=== PATIENT | male | born 1950 | race African-American/Black ===

== ENCOUNTER 2018-01-23 12:53 | Observation (INO) | payer OTHER, MEDICARE ==
[~2018-01-23] VITALS: Ht 175.3 cm; Wt 62.0 kg
[~2018-01-23 12:53] MED LIST: ALEVE220 MG OR; ALLOPURINOL100 MG PO; ALLOPURINOL300 MG PO; CIPROFLOXACN500 MG PO; FLEXERIL OR; INDOCIN25 MG PO; LISINOPRIL10 MG PO; LORTAB 10 OR; LORTAB 10-325 M1 TAB PO; METFORMIN500 MG PO; METOPROL TAR25 M1 PO; METOPROL TAR25 MG PO; METOPROL TAR50 MG PO; PREPARATIO H RE; TRAMADOL HCL50 MG OR; ZANTAC25 MG OR; [UNRECOGNIZED DRUG - REMARK]
--- NOTE | 2018-01-23 13:03 | NUR ---
PT AMBULATED TO ROOM 14.
[2018-01-23] MEDS ORDERED: [UNRECOGNIZED DRUG - REMARK] (13:27)
[2018-01-23] MEDS ORDERED: LOSARTAN POT50 MG PO (13:27)
[2018-01-23 13:29] LABS: HEMATOCRIT 40.3 % (39.0-50.0); HEMOGLOBIN 13.3 g/dl (14.0-18.0); IMMATURE GRANULOCYTES 0.4 % (0.0-1.0); MEAN CELL VOLUME 93.3 fL CALC (80.0-100.0); MEAN CORPUSCULAR HGB 30.8 pG CALC (26.0-32.0); NEUT# 2.84 thou/uL (1.82-7.42); RED BLOOD COUNT 4.32 mill/uL (4.70-6.10); RED CELL DISTRI WIDTH 12.9 % (11.5-15.5)
--- NOTE | 2018-01-23 13:40 | NUR ---
PT HAS 1 VISITOR @BEDSIDE. 3 VISITORS IN [facility] WANT VISITOR @BEDSIDE TO LEAVE. 1 ADDITIONAL VISITOR ALLOWED IN. PT C/O HIGH BP & INCREASED URINE FREQUENCY x"WEEKS". STATES HE WENT TO PCP [facility] TODAY WHO TOLD HIM HE HAD TO BE ADMITTED. PT CAME TO THIS ER FOR ADMISSION. C/O FREQUENT URINATION, CHRONIC BACK PAIN. STATES HE HASNT TAKEN ANY MEDICATION TODAY. DENIES BOOKER. DENIES VISUAL CHANGES. PULSES STRONG, CAP REFILL <3SECS. EYES PERRLA @3. SKIN WARM & DRY. PT DENIES RECREATIONAL DRUG USE BUT MARIJUANA SMELT IN ROOM.
[2018-01-23 13:55] LABS: ALBUMIN 4.6 g/dL (3.2-5.0); ANION GAP 17 (6-22 (CALC)); BILIRUBIN, TOTAL 0.4 mg/dL (0.0-1.4); BUN 15 mg/dL (8-23); BUN/CREATININE RATIO 19 (12-20 (CALC)); CARBON DIOXIDE 24 mmol/l (22-30); CHLORIDE 101 mmol/l (95-108); CREATININE 0.8 mg/dL (0.7-1.3); GFR > 60 ML/MIN (>=60 (CALC)); GFR FOR AFR.AMER. > 60 ML/MIN (>=60 (CALC)); POTASSIUM 4.8 mmol/l (3.5-5.1); SGOT/AST 19 u/l (19-48); SGPT/ALT 43 u/l (11-66); SODIUM 138 mmol/l (137-146)
[2018-01-23 13:56] LABS: ALKALINE PHOSPHATASE 93 u/l (38-126)
[2018-01-23 14:06] LABS: MYOGLOBIN 53 ng/mL (0 - 121)
--- NOTE | 2018-01-23 14:46 | NUR ---
PT WAITING IN BED. ADMIT PENDING ORDERS & ROOM ASSIGNEMENT.
--- NOTE | 2018-01-23 15:21 | NUR ---
RECVING MAJOR HANSEN.
--- NOTE | 2018-01-23 15:25 | NUR ---
PT UNABLE TO PRODUCE ANY URINE SINCE ARRIVAL. PT RESTING IN BED, WATCHING TV. WAITING TO GIVE REPORT TO RECVING RN.
--- NOTE | 2018-01-23 15:36 | NUR ---
Admission Note Report Given to: LUCI Transported by: X Wheelchair Stretcher Transported with: X Nurse Transporter X Patent IV [id number] Community Service Representative
--- NOTE | 2018-01-23 15:47 | NUR ---
PT TRANSPORTED TO [facility] BY IN STABLE CONDITION. PT TRANSFERED TO BED UNASSISTED.
[2018-01-23 15:52] VITALS: BP 185/95
--- NOTE | 2018-01-23 17:55 | NUR ---
REPORT RECEIVED FROM OLE IN ED, PT ARRIVED ON UNIT @1550 VIA WC. ALERT AND ORIENTED X 4, ORIENTED TO ROOM AND CALL COELLO, DENIES PAIN, EDICATED ON DIABETES AND HYPERGLYCEMIA MEDS, SETTLED IN BE , WILL CONTINUE TO MONITOR.
[2018-01-23 20:00] VITALS: BP 142/96
--- NOTE | 2018-01-23 21:29 | NUR ---
PT.ASSESSED AND MEDICATED ORDERS PROVIDE AND FOR HEADACHE. LUNG SOUNDS ARE CLEAR, NO SIGNS OF EDEMA, PLS STRONG, ABD SOFT/NON-TENDER. IV FLUIDS ARE RUNNING ORDERS PROVIDE AND SITE APPEARS HEALTHY. PT.REPORTS FEELING BETTER. REPORTS FEELING "THIRSTY AND FREQUENT URINATION" REPORTS MODERATE SOFT STOOL TODAY. DENIES ANY OTHER NEEDS AT THIS TIME. CALL LIGHT W/IN REACH
--- NOTE | 2018-01-23 23:31 | NUR ---
PT.REPORTS ONLY URINATING ONCE THIS EVENING AND FLUSHING IT IN THE TOILET. INPUT OF 1300 AT THIS POINT. PT IS ATTEMPTING TO USE URINAL AT THIS TIME. WILL CONTINUE TO MONITOR AND REASSESS. PT.DENIES PAIN OR PRESSURE AT BLADDER AREA.
[2018-01-24 04:21] VITALS: BP 148/88
--- NOTE | 2018-01-24 04:21 | NUR ---
PT.IS SLEEPING WE ENTERED ROOM AND AWOKE TO OUR VOICES. NO S/S OF DISTRESS NOTED. V/S ASSESSED. PT.RETURNING TO SLEEP/LIGHTS OUT.
[2018-01-24 05:08] LABS: ALKALINE PHOSPHATASE 70 u/l (38-126); BILIRUBIN, TOTAL 0.3 mg/dL (0.0-1.4); BUN 12 mg/dL (8-23); BUN/CREATININE RATIO 16 (12-20 (CALC)); CARBON DIOXIDE 25 mmol/l (22-30); CHLORIDE 107 mmol/l (95-108); CREATININE 0.7 mg/dL (0.7-1.3); GFR > 60 ML/MIN (>=60 (CALC)); GFR FOR AFR.AMER. > 60 ML/MIN (>=60 (CALC)); SGOT/AST 17 u/l (19-48); SGPT/ALT 38 u/l (11-66); SODIUM 139 mmol/l (137-146)
[2018-01-24 05:10] LABS: ALBUMIN 3.4 g/dL (3.2-5.0); ANION GAP 11 (6-22 (CALC)); HEMATOCRIT 36.3 % (39.0-50.0); IMMATURE GRANULOCYTES 0.4 % (0.0-1.0); MEAN CELL VOLUME 94.3 fL CALC (80.0-100.0); MEAN CORPUSCULAR HGB 31.2 pG CALC (26.0-32.0); MEAN CORPUSCULAR HGB CONC 33.1 g/L CALC (32.0-36.0); NEUT# 1.89 thou/uL (1.82-7.42); POTASSIUM 3.8 mmol/l (3.5-5.1); RED BLOOD COUNT 3.85 mill/uL (4.70-6.10); RED CELL DISTRI WIDTH 13.2 % (11.5-15.5); TOTAL PROTEIN 6.3 g/dL (6.3-8.2)
--- NOTE | 2018-01-24 07:00 | NUR ---
SHIFT CHANGE REPORT FROM ALISON FULLER SLEEPING BUT AWAKENED TO VERBAL STIMULI, ORIENTED, NO C/O DISCOMFORT, IVF INFUSING, CALL COELLO IN REACH.
[2018-01-24 08:11] VITALS: BP 152/82
[2018-01-24 08:19] VITALS: BP 152/82
[2018-01-24 08:30] LABS: URINE BILIRUBIN - DIPSTICK NEGATIVE (NEGATIVE); URINE BLOOD DIPSTICK NEGATIVE (NEGATIVE); URINE COLOR YELLOW; URINE GLUCOSE - DIPSTICK 500 mg/dL (NEGATIVE); URINE KETONE TRACE mg/dL (NEGATIVE); URINE LEUK ESTERASE NEGATIVE (Negative); URINE NITRITE - DIPSTICK NEGATIVE (Negative); URINE PROTEIN - DIPSTICK 30 mg/dL (NEG-TRACE); URINE SPECIFIC GRAVITY >=1.030; URINE UROBILINOGEN - DIPSTICK 0.2 E.U./dL (0.2)
[2018-01-24 08:59] LABS: URINE CLARITY CLEAR
[2018-01-24 09:00] LABS: URINE RBC 0-2 RBC/hpf (0-5); URINE WBC 0-2 WBC/hpf (0-5)
[2018-01-24] MEDS ORDERED: GLUCOPHAGE500 MG PO (11:15)
[2018-01-24] MEDS ORDERED: METOPROL TAR25 MG PO (11:15)
[2018-01-24] MEDS ORDERED: LEVEMIR FL100 UNIT/M SC (11:17)
--- NOTE | 2018-01-24 14:40 | NUR ---
Discharge instructions given. Patient verbalizes understanding of same. Discharged in fair condition via Ambulatory to Home with family. All belongings sent with pt.
--- NOTE | 2018-01-24 14:53 | NUR ---
EDUCATION GIVEN ON INSULIN ADMINISTRATION CONTROL OF BLOOD GLUCOSE, WRITTEN AND VERBAL INFORMATION GIVEN.
== END 2018-01-24 14:40 | disposition home or self-care (01) | DRG 639 ==
LOC: ED 12:53 → ED-I 14:37 → ED 15:06 → MS2 15:07
PROVIDERS: Emergency Medicine; Nurse Practitioner; ADMIT Internal Medicine; ATTEND Internal Medicine
DX: E11.65 Type 2 diabetes mellitus with hyperglycemia (principal); I10 Essential (primary) hypertension; E66.9 Obesity, unspecified; Z79.84 Long term (current) use of oral hypoglycemic drugs
CPT/HCPCS: J1650

== ENCOUNTER 2018-11-13 19:03 | Emergency (ER) | payer MEDICARE ==
[~2018-11-13] VITALS: Ht 175.3 cm; Wt 107.0 kg
[~2018-11-13 19:03] MED LIST changes: +AMLODIPINE BESYL5 MG PO; +GLUCOPHAGE500 MG PO; +LEVEMIR FL100 UNIT/M SC; +LOSARTAN POT50 MG PO; +[UNRECOGNIZED DRUG - REMARK]
[2018-11-13 19:47] LABS: HEMATOCRIT 38.2 % (39.0-50.0); IMMATURE GRANULOCYTES 0.4 % (0.0-5.0); MEAN CORPUSCULAR HGB 30.2 pG CALC (26.0-32.0); MEAN CORPUSCULAR HGB CONC 31.4 g/L CALC (32.0-36.0); NEUT# 4.63 thou/uL (1.82-7.42); RED BLOOD COUNT 3.98 mill/uL (4.70-6.10); RED CELL DISTRI WIDTH 14.4 % (11.5-15.5)
[2018-11-13 20:19] LABS: ALBUMIN 4.5 g/dL (3.2-5.0); ALKALINE PHOSPHATASE 59 u/l (38-126); ANION GAP 16 (6-22 (CALC)); BILIRUBIN, TOTAL 0.4 mg/dL (0.0-1.4); BUN 16 mg/dL (8-23); BUN/CREATININE RATIO 17 (12-20 (CALC)); CARBON DIOXIDE 26 mmol/l (22-30); CHLORIDE 104 mmol/l (95-108); CREATININE 0.9 mg/dL (0.7-1.3); GFR > 60 ML/MIN (>=60 (CALC)); GFR FOR AFR.AMER. > 60 ML/MIN (>=60 (CALC)); POTASSIUM 4.6 mmol/l (3.5-5.1); SGOT/AST 19 u/l (19-48); SODIUM 142 mmol/l (137-146); TOTAL PROTEIN 7.4 g/dL (6.3-8.2)
[2018-11-13 21:41] LABS: URINE BILIRUBIN - DIPSTICK NEGATIVE (NEGATIVE); URINE BLOOD DIPSTICK NEGATIVE (NEGATIVE); URINE COLOR YELLOW; URINE GLUCOSE - DIPSTICK NEGATIVE (NEGATIVE); URINE KETONE NEGATIVE (NEGATIVE); URINE LEUK ESTERASE NEGATIVE (NEGATIVE); URINE NITRITE - DIPSTICK NEGATIVE (Negative); URINE PROTEIN - DIPSTICK 30 mg/dL (NEG-TRACE); URINE SPECIFIC GRAVITY >=1.030; URINE UROBILINOGEN - DIPSTICK 0.2 E.U./dL (0.2)
[2018-11-13 21:48] LABS: URINE SQUAMOUS EPITHELIAL CELL FEW EPI/hpf (0-FEW)
[2018-11-13] MEDS ORDERED: TORADOL PO (21:55)
[2018-11-13 22:15] VITALS: BP 154/71
== END 2018-11-13 22:15 | disposition home or self-care (01) ==
LOC: ED 19:03
PROVIDERS: Family Medicine
DX: B34.9 Viral infection, unspecified (principal); M46.92 Unspecified inflammatory spondylopathy, cervical region; I10 Essential (primary) hypertension; E11.9 Type 2 diabetes mellitus without complications

== ENCOUNTER 2021-10-11 08:43 | Emergency (ER) | payer OTHER, MEDICARE ==
[~2021-10-11] VITALS: Ht 175.3 cm; Wt 60.4 kg
[2021-10-11] VITALS (12 sets, daily range): BP systolic 125–151; BP diastolic 70–85
[~2021-10-11 08:43] MED LIST changes: +TORADOL PO
[2021-10-11 09:48] LABS: HEMOGLOBIN 13.6 g/dl (14.0-18.0); IMMATURE GRANULOCYTES 0.4 % (0.0-5.0); MEAN CELL VOLUME 100.2 fL CALC (80.0-100.0); MEAN CORPUSCULAR HGB 30.4 pG CALC (26.0-32.0); MEAN CORPUSCULAR HGB CONC 30.3 g/dL CAL (32.0-36.0); NEUT# 2.02 thou/uL (1.82-7.42); RED BLOOD COUNT 4.48 mill/uL (4.70-6.10)
[2021-10-11 09:50] LABS: HEMATOCRIT 44.9 % (39.0-50.0)
[2021-10-11 10:09] LABS: ALBUMIN 4.6 g/dL (3.2-5.0); ALKALINE PHOSPHATASE 64 u/l (38-126); ANION GAP 15 (6-22 (CALC)); BILIRUBIN, TOTAL 0.4 mg/dL (0.0-1.4); BUN 17 mg/dL (8-23); BUN/CREATININE RATIO 16 (12-20 (CALC)); CARBON DIOXIDE 25 mmol/l (22-30); CHLORIDE 107 mmol/l (95-108); CREATININE 1.1 mg/dL (0.7-1.3); GFR > 60 ML/MIN (>=60 (CALC)); GFR FOR AFR.AMER. > 60 ML/MIN (>=60 (CALC)); POTASSIUM 4.6 mmol/l (3.5-5.1); SGOT/AST 26 u/l (19-48); SODIUM 142 mmol/l (137-146); TOTAL PROTEIN 8.1 g/dL (6.3-8.2)
[2021-10-11 10:19] LABS: MYOGLOBIN 67 ng/mL (0 - 121)
[2021-10-11 11:08] LABS: URINE BILIRUBIN - DIPSTICK NEGATIVE (NEGATIVE); URINE BLOOD DIPSTICK TRACE-INTACT (NEGATIVE); URINE COLOR YELLOW; URINE GLUCOSE - DIPSTICK >=1000 mg/dL (NEGATIVE); URINE LEUK ESTERASE NEGATIVE (NEGATIVE); URINE PROTEIN - DIPSTICK 30 mg/dL (NEG-TRACE); URINE SPECIFIC GRAVITY 1.015; URINE UROBILINOGEN - DIPSTICK 0.2 E.U./dL (0.2)
[2021-10-11 11:12] LABS: URINE NITRITE - DIPSTICK NEGATIVE (Negative)
[2021-10-11 11:15] LABS: URINE KETONE Negative (NEGATIVE)
[2021-10-11] MEDS ORDERED: NAPROXEN500 MG PO (13:14)
== END 2021-10-11 13:55 | disposition home or self-care (01) | DRG 313 ==
LOC: ED 08:43
PROVIDERS: Emergency Medicine
DX: R07.89 Other chest pain (principal); I10 Essential (primary) hypertension; E11.9 Type 2 diabetes mellitus without complications; Z85.46 Personal history of malignant neoplasm of prostate; Z92.3 Personal history of irradiation; Z79.4 Long term (current) use of insulin; Z20.822 Contact with and (suspected) exposure to COVID-19

== ENCOUNTER 2023-02-22 15:41 | Emergency (ER) | payer OTHER, MEDICARE ==
[~2023-02-22] VITALS: Ht 175.3 cm; Wt 106.2 kg
[2023-02-22] VITALS (8 sets, daily range): BP systolic 160–174; BP diastolic 76–90
[~2023-02-22 15:41] MED LIST changes: +NAPROXEN500 MG PO
[2023-02-22 16:46] LABS: BASO% 0.5 % (0-3); EOS% 0.2 % (0-8); IMMATURE GRANULOCYTES 1.2 % (0.0-5.0); LYMPH% 52.2 % (15-41); MEAN CELL VOLUME 99.1 fL CALC (80.0-100.0); MEAN CORPUSCULAR HGB 30.7 pG CALC (26.0-32.0); MEAN CORPUSCULAR HGB CONC 30.9 g/dL CAL (32.0-36.0); MONO% 31.3 % (2-13); NEUT# 0.61 thou/uL (1.82-7.42); NEUT% 14.6 % (42-76); RED BLOOD COUNT 3.49 mill/uL (4.70-6.10); RED CELL DISTRI WIDTH 17.2 % (11.5-15.5)
[2023-02-22 16:57] LABS: ALBUMIN 4.5 g/dL (3.2-5.0); ALKALINE PHOSPHATASE 64 u/l (38-126); ANION GAP 12 (6-22 (CALC)); BILIRUBIN, TOTAL 0.4 mg/dL (0.2-1.3); BUN 13 mg/dL (8-23); BUN/CREATININE RATIO 11 (12-20 (CALC)); CARBON DIOXIDE 24 mmol/l (22-30); CHLORIDE 109 mmol/l (95-108); CREATININE 1.2 mg/dL (0.7-1.3); GFR FOR AFR.AMER. > 60 ML/MIN (>=60 (CALC)); GFR OTHER RACES 60 ML/MIN (>=60 (CALC)); POTASSIUM 4.3 mmol/l (3.5-5.1); SGOT/AST 29 u/l (19-48); SODIUM 141 mmol/l (137-146); TOTAL PROTEIN 7.8 g/dL (6.3-8.2)
[2023-02-22 17:01] LABS: HEMATOCRIT 34.6 % (39.0-50.0); HEMOGLOBIN 10.7 g/dl (14.0-18.0)
== END 2023-02-22 17:32 | disposition home or self-care (01) | DRG 812 ==
LOC: ED 15:41
PROVIDERS: Family Medicine
DX: D64.9 Anemia, unspecified (principal); D69.6 Thrombocytopenia, unspecified; I10 Essential (primary) hypertension; E11.9 Type 2 diabetes mellitus without complications; Z85.46 Personal history of malignant neoplasm of prostate; Z92.3 Personal history of irradiation; Z79.4 Long term (current) use of insulin; Z20.822 Contact with and (suspected) exposure to COVID-19

== ENCOUNTER 2023-03-19 07:37 | Emergency (ER) | payer OTHER, MEDICARE ==
[~2023-03-19] VITALS: Ht 175.3 cm; Wt 98.4 kg
[2023-03-19] VITALS (19 sets, daily range): BP systolic 130–191; BP diastolic 63–103
[2023-03-19] MEDS ORDERED: METFORMIN500 M2 PO (07:54)
[2023-03-19] MEDS ORDERED: ALLOPURINOL300 MG PO (07:55)
[2023-03-19] MEDS ORDERED: ACYCLOVIR200 MG PO (07:55)
[2023-03-19] MEDS ORDERED: JARDIANCE25 MG (07:57)
[2023-03-19] MEDS ORDERED: AMLODIPINE BES2.5 MG PO (07:58)
[2023-03-19] MEDS ORDERED: LEVOFLOXACIN500MG PO (08:00)
[2023-03-19 08:27] LABS: MEAN CELL VOLUME 98.4 fL CALC (80.0-100.0); MEAN CORPUSCULAR HGB 31.2 pG CALC (26.0-32.0); MEAN CORPUSCULAR HGB CONC 31.7 g/dL CAL (32.0-36.0); RED CELL DISTRI WIDTH 17.5 % (11.5-15.5)
[2023-03-19 08:52] LABS: HEMATOCRIT 24.6 % (39.0-50.0); HEMOGLOBIN 7.8 g/dl (14.0-18.0)
[2023-03-19 08:53] LABS: ALBUMIN 3.9 g/dL (3.2-5.0); CREATININE 1.4 mg/dL (0.7-1.3); IMMATURE GRANULOCYTES 0.4 % (0.0-5.0); MANUAL DIFFERENTIAL YES; PLATELET COUNT 21 thou/uL (130-400); TOTAL PROTEIN 7.6 g/dL (6.3-8.2)
[2023-03-19 08:54] LABS: BILIRUBIN, TOTAL 0.6 mg/dL (0.2-1.3)
[2023-03-19 08:58] LABS: IMMATURE CELLS 90 %
[2023-03-19 08:59] LABS: PLATELET ESTIMATE MARKED DECREASE
[2023-03-19 10:45] LABS: URINE BILIRUBIN - DIPSTICK Negative (NEGATIVE); URINE BLOOD DIPSTICK Moderate (NEGATIVE); URINE GLUCOSE - DIPSTICK >=1000 mg/dL (NEGATIVE); URINE KETONE 15 mg/dL (NEGATIVE); URINE LEUK ESTERASE Negative (NEGATIVE); URINE NITRITE - DIPSTICK Negative (Negative); URINE PROTEIN - DIPSTICK 100 mg/dL (NEG-TRACE); URINE UROBILINOGEN - DIPSTICK 0.2 E.U./dL (0.2)
[2023-03-19 11:00] LABS: URINE COLOR Yellow
[2023-03-19 11:01] LABS: URINE CASTS FEW lpf (NONE-RARE); URINE RBC 0-2 RBC/hpf (0-5); URINE SQUAMOUS EPITHELIAL CELL FEW EPI/hpf (0-FEW)
== END 2023-03-19 11:59 | disposition short-term general hospital (02) | DRG 155 ==
LOC: ED 07:37
PROVIDERS: Family Medicine
DX: K11.20 Sialoadenitis, unspecified (principal); D69.6 Thrombocytopenia, unspecified; C95.90 Leukemia, unspecified not having achieved remission; I10 Essential (primary) hypertension; E11.9 Type 2 diabetes mellitus without complications; Z85.46 Personal history of malignant neoplasm of prostate; Z92.3 Personal history of irradiation; Z20.822 Contact with and (suspected) exposure to COVID-19
CPT/HCPCS: J0131; J1100; Q9967

== ENCOUNTER 2023-05-29 13:23 | Emergency (ER) | payer OTHER, MEDICARE ==
[2023-05-29] VITALS (19 sets, daily range): BP systolic 120–155; BP diastolic 53–76
[~2023-05-29] VITALS: Ht 175.3 cm; Wt 92.5 kg
[~2023-05-29 13:23] MED LIST changes: +ACYCLOVIR200 MG PO; +AMLODIPINE BES2.5 MG PO; +AMLODIPINE BESY10 MG PO; +CHLORHEX GLU0.12 % MT; +JARDIANCE25 MG; +KLOR-CON M1010 MEQ PO; +LEVOFLOXACIN500MG PO; +LOSARTAN POTAS100 MG PO; +METFORMIN500 M2 PO; +METOPROLOL TAR100 MG PO; +MIRTAZAPINE15 MG PO; +PROTONIX40 M2 PO; +ZOFRAN4 MG/TAB PO; +[UNRECOGNIZED DRUG - OTHER]
[2023-05-29] MEDS ORDERED: ACYCLOVIR400 MG PO (13:41)
[2023-05-29] MEDS ORDERED: CIPROFLOXACN500 MG PO (13:42)
[2023-05-29 13:50] LABS: MEAN CELL VOLUME 96.1 fL CALC (80.0-100.0); MEAN CORPUSCULAR HGB 29.3 pG CALC (26.0-32.0); MEAN CORPUSCULAR HGB CONC 30.5 g/dL CAL (32.0-36.0); RED BLOOD COUNT 1.81 mill/uL (4.70-6.10); RED CELL DISTRI WIDTH 18.7 % (11.5-15.5)
[2023-05-29 14:04] LABS: BASO% 0.3 % (0-3); EOS% 0.3 % (0-8); IMMATURE GRANULOCYTES 2.5 % (0.0-5.0); LYMPH% 18.5 % (15-41); MONO% 1.4 % (2-13); NEUT# 2.75 thou/uL (1.82-7.42)
[2023-05-29 14:05] LABS: HEMATOCRIT 17.4 % (39.0-50.0); HEMOGLOBIN 5.3 g/dl (14.0-18.0)
[2023-05-29 14:15] LABS: ALBUMIN 3.2 g/dL (3.2-5.0); ALKALINE PHOSPHATASE 93 u/l (38-126); ANION GAP 13 (6-22 (CALC)); BILIRUBIN, TOTAL 0.7 mg/dL (0.2-1.3); BUN 16 mg/dL (8-23); BUN/CREATININE RATIO 20 (12-20 (CALC)); CARBON DIOXIDE 23 mmol/l (22-30); CHLORIDE 104 mmol/l (95-108); CREATININE 0.8 mg/dL (0.7-1.3); GFR FOR AFR.AMER. > 60 ML/MIN (>=60 (CALC)); GFR OTHER RACES > 60 ML/MIN (>=60 (CALC)); POTASSIUM 3.8 mmol/l (3.5-5.1); SGOT/AST 27 u/l (19-48); SODIUM 137 mmol/l (137-146); TOTAL PROTEIN 6.5 g/dL (6.3-8.2)
[2023-05-29 14:43] LABS: URINE BILIRUBIN - DIPSTICK Negative (NEGATIVE); URINE BLOOD DIPSTICK Moderate (NEGATIVE); URINE GLUCOSE - DIPSTICK Negative (NEGATIVE); URINE KETONE Negative (NEGATIVE); URINE LEUK ESTERASE Negative (NEGATIVE); URINE NITRITE - DIPSTICK Negative (Negative); URINE PROTEIN - DIPSTICK 100 mg/dL (NEG-TRACE); URINE SPECIFIC GRAVITY >=1.030
[2023-05-29 14:47] LABS: URINE COLOR Yellow; URINE WBC 0-2 WBC/hpf (0-5)
== END 2023-05-29 17:35 | disposition short-term general hospital (02) | DRG 809 ==
LOC: ED 13:23
PROVIDERS: Family Medicine; Nurse Practitioner
PROC: 30233N1 Transfusion of Nonautologous Red Blood Cells into Peripheral Vein, Percutaneous Approach (ICD-10-PCS; principal; 2023-05-29)
DX: D61.818 Other pancytopenia (principal); C92.00 Acute myeloblastic leukemia, not having achieved remission; K62.5 Hemorrhage of anus and rectum; E11.9 Type 2 diabetes mellitus without complications; Z79.899 Other long term (current) drug therapy; Z20.822 Contact with and (suspected) exposure to COVID-19
CPT/HCPCS: P9016

== ENCOUNTER 2023-07-10 07:30 | Emergency (ER) | payer OTHER, MEDICARE ==
[2023-07-10] VITALS (10 sets, daily range): BP systolic 131–164; BP diastolic 59–97
[~2023-07-10] VITALS: Ht 175.3 cm; Wt 90.7 kg
[~2023-07-10 07:30] MED LIST changes: +ACYCLOVIR400 MG PO
[2023-07-10 08:40] LABS: D-DIMER 1.68 mg/L (0.19-0.60)
[2023-07-10 08:44] LABS: ALBUMIN 4.2 g/dL (3.2-5.0); ALKALINE PHOSPHATASE 96 u/l (38-126); ANION GAP 12 (6-22 (CALC)); BILIRUBIN, TOTAL 0.5 mg/dL (0.2-1.3); BUN 11 mg/dL (8-23); BUN/CREATININE RATIO 15 (12-20 (CALC)); CARBON DIOXIDE 29 mmol/l (22-30); CHLORIDE 108 mmol/l (95-108); CREATININE 0.7 mg/dL (0.7-1.3); GFR FOR AFR.AMER. > 60 ML/MIN (>=60 (CALC)); GFR OTHER RACES > 60 ML/MIN (>=60 (CALC)); POTASSIUM 3.4 mmol/l (3.5-5.1); SGOT/AST 26 u/l (19-48); SODIUM 146 mmol/l (137-146); TOTAL PROTEIN 7.7 g/dL (6.3-8.2)
[2023-07-10 09:01] LABS: BASO% 0.3 % (0-3); HEMOGLOBIN 9.3 g/dl (14.0-18.0); IMMATURE GRANULOCYTES 2.2 % (0.0-5.0); LYMPH% 10.7 % (15-41); MEAN CORPUSCULAR HGB 30.3 pG CALC (26.0-32.0); MONO% 14.6 % (2-13); NEUT# 12.04 thou/uL (1.82-7.42); NEUT% 72.2 % (42-76); RED BLOOD COUNT 3.07 mill/uL (4.70-6.10)
[2023-07-10 09:19] LABS: URINE BILIRUBIN - DIPSTICK Negative (NEGATIVE); URINE BLOOD DIPSTICK Trace-intact (NEGATIVE); URINE GLUCOSE - DIPSTICK Negative (NEGATIVE); URINE KETONE Negative (NEGATIVE); URINE LEUK ESTERASE Negative (NEGATIVE); URINE NITRITE - DIPSTICK Negative (Negative); URINE PH 6.5 (4.5-8.0); URINE PROTEIN - DIPSTICK 100 mg/dL (NEG-TRACE); URINE UROBILINOGEN - DIPSTICK 0.2 E.U./dL (0.2)
[2023-07-10 09:20] LABS: URINE COLOR Yellow
[2023-07-10 09:23] LABS: URINE EPITHELIAL CELLS FEW EPI/hpf (0-FEW); URINE MUCUS FEW hpf (NONE-FEW); URINE RBC 0-2 RBC/hpf (0-5)
== END 2023-07-10 11:39 | disposition short-term general hospital (02) | DRG 291 ==
LOC: ED 07:30 → ED-I 08:29 → ED 08:29
PROVIDERS: Emergency Medicine
DX: I11.0 Hypertensive heart disease with heart failure (principal); J96.01 Acute respiratory failure with hypoxia; C92.00 Acute myeloblastic leukemia, not having achieved remission; I50.9 Heart failure, unspecified; E11.9 Type 2 diabetes mellitus without complications; Z20.822 Contact with and (suspected) exposure to COVID-19
CPT/HCPCS: Q9967